=== PATIENT | female | born 1980 | race Caucasian/White ===

== ENCOUNTER 2016-09-03 17:11 | Emergency (ER) | payer MEDICAID ==
[~2016-09-03] VITALS: Ht 157.5 cm; Wt 162.2 kg
[2016-09-03] MEDS ORDERED: ALBUTEROL/IPRATROPIUM 2.5MG/0.5MG, 3 ML ONE (17:57)
[2016-09-03] MEDS ORDERED: ALBUTEROL/IPRATROPIUM 2.5MG/0.5MG, 3 ML NPPB ONE (18:00)
[2016-09-03 19:25] VITALS: BP 132/74
== END 2016-09-03 19:31 | disposition home or self-care (01) ==
LOC: ED 18:43
DX: O99.513 Diseases of the respiratory system complicating pregnancy, third trimester (principal); O26.893 Other specified pregnancy related conditions, third trimester; J20.9 Acute bronchitis, unspecified; J98.01 Acute bronchospasm; Z87.891 Personal history of nicotine dependence; Z3A.35 35 weeks gestation of pregnancy
CPT/HCPCS: 71010; 93005; 94640; 99284; J7620

== ENCOUNTER 2016-09-05 17:52 | Emergency (ER) | payer MEDICAID ==
[~2016-09-05] VITALS: Ht 157.5 cm; Wt 163.0 kg
[2016-09-05 18:00] VITALS: BP 138/85
[2016-09-05 18:35] LABS: BLOOD UREA NITROGEN 7 mg/dL (7-18)
== END 2016-09-05 19:39 | disposition home or self-care (01) ==
LOC: ED 19:00
DX: O99.513 Diseases of the respiratory system complicating pregnancy, third trimester (principal); J20.8 Acute bronchitis due to other specified organisms; Z3A.35 35 weeks gestation of pregnancy
CPT/HCPCS: 36415; 80048; 85025; 93005; 99285

== ENCOUNTER 2016-10-06 03:51 | Inpatient (IN) | payer MEDICAID ==
[~2016-10-06] VITALS: Ht 157.5 cm; Wt 168.2 kg
[2016-10-06 04:00] VITALS: BP 147/91
[2016-10-06] MEDS: OXYTOCIN 30U/ 0.9% NaCL 500ML 500 ML IV SCH ×2 (04:48→14:48)
[2016-10-06] MEDS ORDERED: CALCIUM CARBONATE 500 MG TAB.CHEW PO PRN (05:00)
[2016-10-06] MEDS: LACTATED RINGERS 1,000 ML IV SCH ×6 (05:00→15:48)
[2016-10-06] MEDS ORDERED: SODIUM CITRATE/CITRIC ACID 30 ML UDC PO ONE (05:00)
[2016-10-06] MEDS ORDERED: LACTATED RINGERS 1,000 ML IVBOLUS ONE (05:00)
[2016-10-06] MEDS ORDERED: ONDANSETRON 2MG/ML, 2ML IVPush ONE (05:00)
[2016-10-06] MEDS ORDERED: METOCLOPRAMIDE 5 MG/ML, 2ML IV ONE (05:00)
[2016-10-06] MEDS ORDERED: CEFAZOLIN PMX 1GM/50ML 50 ML IVPB ONE (05:00)
[2016-10-06] MEDS ORDERED: FENTANYL PF 100 MCG/2ML ONE ×2 (05:02→06:25)
[2016-10-06] MEDS ORDERED: SODIUM CITRATE/CITRIC ACID 30 ML UDC ONE (05:03)
[2016-10-06] MEDS ORDERED: NEWBORN KIT ONE (05:03)
[2016-10-06] MEDS ORDERED: METOCLOPRAMIDE 5 MG/ML, 2ML ONE (05:03)
[2016-10-06] MEDS ORDERED: TERBUTALINE 1 MG/ML, 1ML ONE (05:03)
[2016-10-06] MEDS: FENTANYL PF 100 MCG/2ML IVPush PRN ×2 (05:05→06:30)
[2016-10-06] MEDS ORDERED: TERBUTALINE 1 MG/ML, 1ML IV ONE (05:30)
[2016-10-06 05:32] LABS: ASPARTATE AMINO TRANSFERASE 13 U/L (15-37); BLOOD UREA NITROGEN 9 mg/dL (7-18)
[2016-10-06] MEDS ORDERED: LABETALOL 5MG/ML, 20ML IV PRN (07:30)
[2016-10-06] MEDS ORDERED: MIDAZOLAM 1 MG/ML, 2ML IV PRN (07:30)
[2016-10-06] MEDS ORDERED: MEPERIDINE/PF 25MG/0.5ML IVPush PRN (07:30)
[2016-10-06] MEDS ORDERED: ONDANSETRON 2MG/ML, 2ML IVPush PRN (07:30)
[2016-10-06] MEDS ORDERED: FENTANYL PF 100 MCG/2ML IV PRN (07:30)
[2016-10-06] MEDS ORDERED: HYDROmorphone 1 MG/ML, 1ML IV PRN (07:30)
[2016-10-06] MEDS ORDERED: HYDROcodone/APAP 7.5-325MG/15ML UDC PO PRN (07:30)
[2016-10-06] MEDS ORDERED: OXYcodone 5 MG/5 ML ORAL.SOL UDC PO PRN (07:30)
[2016-10-06] MEDS ORDERED: hydrALAzine 20 MG/ML, 1ML IV PRN (07:30)
[2016-10-06] MEDS ORDERED: ALBUTEROL SULFATE 2.5 MG/3 ML NPPB PRN (07:30)
[2016-10-06] MEDS ORDERED: PROMETHAZINE 25 MG/ML, 1ML IV PRN (07:30)
[2016-10-06] MEDS ORDERED: EPHEDRINE 50 MG/ML, 1ML IVPush PRN ×2 (07:30→08:00)
[2016-10-06] MEDS ORDERED: AMPICILLIN 2 GM in SODIUM CHLORIDE 0.9% 100 ML IVPB STA (07:36)
[2016-10-06] MEDS ORDERED: FENTANYL/BUPIV./NS/PF 250 ML EPIDCONT SCH (07:48)
[2016-10-06] MEDS ORDERED: FENTANYL/BUPIV./NS/PF 250 ML EPIDCONT ONE (07:52)
[2016-10-06] MEDS ORDERED: BUPIVACAINE/PF 0.25% ONE (07:52)
[2016-10-06] MEDS ORDERED: EPHEDRINE 50 MG/ML, 1ML ONE (07:56)
[2016-10-06] MEDS ORDERED: LACTATED RINGERS 1,000 ML IVBOLUS PRN (08:00)
[2016-10-06] MEDS ORDERED: NALOXONE 0.4 MG/ML, 1ML IVPush PRN (08:00)
[2016-10-06] MEDS ORDERED: OXYTOCIN 30U/ 0.9% NaCL 500ML 500 ML ONE (09:45)
[2016-10-06] MEDS: AMPICILLIN 1 GM in SODIUM CHLORIDE 0.9% 50 ML IVPB SCH ×2 (11:09→15:07)
[2016-10-06] MEDS ORDERED: MISOPROSTOL 200 MCG TABLET ONE (11:39)
[2016-10-06] MEDS ORDERED: LIDOCAINE 1%, 20ML ONE (11:39)
[2016-10-06] MEDS ORDERED: IBUPROFEN 600 MG TABLET ONE ×2 (16:43→23:46)
[2016-10-06] MEDS ORDERED: OXYTOCIN 30U/ 0.9% NaCL 500ML 500 ML IV SCH ×2 (16:48)
[2016-10-06] MEDS ORDERED: DOCUSATE 100 MG CAPSULE PO PRN ×2 (17:00)
[2016-10-06] MEDS ORDERED: MISOPROSTOL 200 MCG TABLET PR PRN (17:00)
[2016-10-06] MEDS ORDERED: IBUPROFEN 600 MG TABLET PO PRN ×2 (17:00)
[2016-10-06] MEDS ORDERED: OXYcodone/APAP 5/325MG TABLET PO PRN ×2 (17:00)
[2016-10-06] MEDS ORDERED: ONDANSETRON 2MG/ML, 2ML IV PRN (17:00)
[2016-10-06] MEDS ORDERED: DIPH,PERTUSS(ACELL),TET VAC/PF NC IM-VACC PRN ×2 (17:00)
[2016-10-06] MEDS ORDERED: HYDROcodone/APAP 5/325 TABLET ONE (17:22)
[2016-10-06] MEDS: HYDROcodone/APAP 5/325 TABLET PO PRN ×2 (17:27→21:58)
[2016-10-06 19:30] VITALS: BP 136/82
[2016-10-06] MEDS ORDERED: LEVOTHYROXINE 125 MCG TABLET PO SCH (21:00)
[2016-10-06] MEDS ORDERED: SERTRALINE 100MG TABLET PO SCH (21:00)
[2016-10-06] MEDS: SERTRALINE 100MG TABLET HOMEMEDPO SCH (22:25)
[2016-10-06] MEDS: LEVOTHYROXINE 125 MCG TABLET HOMEMEDPO SCH (22:26)
[2016-10-06 23:30] VITALS: BP 127/77
[2016-10-06] MEDS: IBUPROFEN 600 MG TABLET PO PRN (23:53)
[2016-10-07] MEDS: HYDROcodone/APAP 5/325 TABLET PO PRN ×6 (01:44→23:25)
[2016-10-07 03:30] VITALS: BP 132/84
[2016-10-07] MEDS: LEVOTHYROXINE 125 MCG TABLET HOMEMEDPO SCH ×2 (05:47→23:25)
[2016-10-07 06:50] VITALS: BP 124/79
[2016-10-07 06:55] VITALS: BP 122/76
[2016-10-07] MEDS ORDERED: DOCUSATE 100 MG CAPSULE ONE (08:11)
[2016-10-07] MEDS ORDERED: PRENATAL VIT/IRON/FA 1 EACH TABLET ONE (08:11)
[2016-10-07] MEDS: IBUPROFEN 600 MG TABLET PO PRN ×2 (08:17→19:29)
[2016-10-07] MEDS: PRENATAL VIT/IRON/FA 1 EACH TABLET PO SCH (08:23)
[2016-10-07] MEDS: DOCUSATE 100 MG CAPSULE PO PRN ×2 (08:24→19:30)
[2016-10-07] MEDS ORDERED: PRENATAL VIT/IRON/FA 1 EACH TABLET PO SCH ×2 (09:00)
[2016-10-07 11:50] VITALS: BP 125/86
[2016-10-07 16:10] VITALS: BP 132/88
[2016-10-07 20:00] VITALS: BP 127/82
[2016-10-07] MEDS: SERTRALINE 100MG TABLET HOMEMEDPO SCH (22:30)
[2016-10-08 06:55] VITALS: BP 137/95
[2016-10-08] MEDS ORDERED: LEVOTHYROXINE 125 MCG TABLET PO SCH (08:08)
[2016-10-08] MEDS: DOCUSATE 100 MG CAPSULE PO PRN (08:19)
[2016-10-08] MEDS: IBUPROFEN 600 MG TABLET PO PRN ×2 (08:19→14:51)
[2016-10-08] MEDS: HYDROcodone/APAP 5/325 TABLET PO PRN ×2 (08:19→14:51)
[2016-10-08] MEDS: PRENATAL VIT/IRON/FA 1 EACH TABLET PO SCH (08:19)
[2016-10-08] MEDS ORDERED: DOCU-30 PO (12:01)
[2016-10-08] MEDS ORDERED: IBUP800T PO (12:01)
== END 2016-10-08 16:30 | disposition home or self-care (01) | DRG 775 ==
LOC: LDOP 03:51 → LDIP 04:51 → 2NW 18:56
PROVIDERS: ADMIT Student in an Organized Health Care Education/Training Program; ATTEND Student in an Organized Health Care Education/Training Program
PROC: 10E0XZZ Delivery of Products of Conception, External Approach (ICD-10-PCS; principal; 2016-10-06)
PROC: 00HU33Z Insertion of Infusion Device into Spinal Canal, Percutaneous Approach (ICD-10-PCS; 2016-10-06)
PROC: 3E0R3CZ (ICD-10-PCS; 2016-10-06)
DX: O99.214 Obesity complicating childbirth (principal); Z68.44 Body mass index [BMI] 60.0-69.9, adult; Z37.0 Single live birth; E66.01 Morbid (severe) obesity due to excess calories; Z3A.39 39 weeks gestation of pregnancy; O99.284 Endocrine, nutritional and metabolic diseases complicating childbirth; E03.9 Hypothyroidism, unspecified; O36.63X0 Maternal care for excessive fetal growth, third trimester, not applicable or unspecified; F32.9 Major depressive disorder, single episode, unspecified; O99.344 Other mental disorders complicating childbirth; J45.909 Unspecified asthma, uncomplicated; O99.52 Diseases of the respiratory system complicating childbirth; O99.824 Streptococcus B carrier state complicating childbirth; O40.3XX0 Polyhydramnios, third trimester, not applicable or unspecified; O32.0XX0 Maternal care for unstable lie, not applicable or unspecified
CPT/HCPCS: 36415; 80053; 81003; 82248; 82570; 84156; 84550; 85025; 86850; 86900; J0290; J3010; J2590; J3105; J7120